=== PATIENT | female | born 1970 | race Caucasian/White ===

== ENCOUNTER 2017-03-14 21:18 | Emergency (ER) | payer BC ==
[~2017-03-14 21:18] MED LIST: AUGMENTIN 875-1 EACH PO; PRILOSEC OTC20 MG PO
== END 2017-03-14 22:40 | disposition home or self-care (01) ==
LOC: ER1 21:18
DX: L50.0 Allergic urticaria (principal); Z90.49 Acquired absence of other specified parts of digestive tract
CPT/HCPCS: 99282; Q0163